=== PATIENT | female | born 1945 | race Caucasian/White ===

== ENCOUNTER 2023-05-14 22:49 | Emergency (ER) | payer OTHER, MEDICAID ==
[~2023-05-14] VITALS: Ht 162.6 cm; Wt 54.4 kg
[2023-05-14 22:50] VITALS: BP_SYST 156; PULSE 66; RESP 18; TEMP 98.2; O2SAT 96
[2023-05-14] MEDS ORDERED: KETOROLAC TROMETHAMINE 60 MG/2 ML VIAL IM ONE (23:45)
[2023-05-15] MEDS ORDERED: ACETAMINOPHEN 500 MG TABLET PO ONE (01:00)
[2023-05-15] MEDS ORDERED: ACET-2634 PO (01:04)
[2023-05-15] MEDS ORDERED: BACITRACIN 1 GM OINT TP ONE ×2 (01:06→01:15)
[2023-05-15 01:16] VITALS: BP_SYST 134; PULSE 88; RESP 18; TEMP 98.3; O2SAT 98
== END 2023-05-15 01:17 | disposition home or self-care (01) ==
LOC: SED 22:49
DX: S05.12XA Contusion of eyeball and orbital tissues, left eye, initial encounter (principal); S09.90XA Unspecified injury of head, initial encounter; I10 Essential (primary) hypertension; Z79.899 Other long term (current) drug therapy; W18.09XA Striking against other object with subsequent fall, initial encounter; Y93.89 Activity, other specified; Y92.89 Other specified places as the place of occurrence of the external cause; Y99.8 Other external cause status
CPT/HCPCS: 99285; 70450; 70486; 76376; 96372; J1885